=== PATIENT | female | born 1980 | race Caucasian/White ===

== ENCOUNTER 2020-03-01 11:43 | Outpatient (CLI) | payer OTHER, SELFPAY ==
--- NOTE | ~2020-03-01 | XR_ITS ---
EXAMINATION: XR hip LT min 2V EXAM DATE: 03/01/2020 12:28 INDICATION: No known recent injury provided at this time. Pain of the left hip. TECHNIQUE: Left hip frontal, 'frog leg' projections for interpretation. There is no prior study for comparison. FINDINGS: Left hip joint space is maintained, no evidence of hip avascular necrosis. There are no acu te fractures or dislocations identified. There is no subcutaneous gas. The soft tissue is unremarka ble. There are no radiopaque foreign bodies. Pubic symphysis sclerosis, osteitis. There is also mild left hip arthritis with dense sclerosis of the left sacroiliac joint, asymmetric s acroiliitis. Some possible considerations for asymmetric sacroiliitis include psoriatic arthritis, Re iter's syndrome, osteoarthritis. IMPRESSION: 1. Asymmetric left-sided chronic sacroiliitis. 2. Left-sided pubis sclerosis, probably chronic osteitis. 3. Unremarkable left hip. Reviewed, dictated and finalized at location B.
--- NOTE | ~2020-03-01 | XR_ITS ---
EXAMINATION: XR hip RT min 2V EXAM DATE: 03/01/2020 12:29 INDICATION: Bilateral hip pain. Arthralgia. TECHNIQUE: Right hip frontal, 'frog leg' projections for interpretation. There is no prior study fo r comparison. FINDINGS: Smooth right hip femoral head contour, no radiographic evidence of avascular necrosis. The re are no acute fractures or dislocations identified. There is no subcutaneous gas. The soft tissue is unremarkable. There are no radiopaque foreign bodies. IMPRESSION: 1. Unremarkable right hip. exam. Reviewed, dictated and finalized at location B.
--- NOTE | ~2020-03-01 | XR_ITS ---
EXAMINATION: XR lumbar spine 2-3V EXAM DATE: 03/01/2020 12:29 INDICATION: Low back pain. Polyarthralgia. TECHNIQUE: Lumber spine frontal, lateral, lateral L5-S1 projections for interpretation. Comparison is made to prior examination from 12/15/2010. FINDINGS: No spondylolysis. The vertebral bodies are aligned in the AP dimension. Vertebral body and disc heights are well-maintained. Mild lumbar facet arthropathy. Sacrum, sacroiliac joints, sacral arcuate lines are intact. Minimal aortic arterial sclerosis. IMPRESSION: Mild lumbar facet arthropathy. Reviewed, dictated and finalized at location B.
== END 2020-03-01 11:44 | disposition home or self-care (01) ==
LOC: CHSLAB 11:51 → CHSIMG 11:58
PROVIDERS: PCP Internal Medicine; Visit Provider Internal Medicine
DX: M25.50 Pain in unspecified joint (principal); E11.9 Type 2 diabetes mellitus without complications; E78.5 Hyperlipidemia, unspecified
CPT/HCPCS: 72100; 73502

== ENCOUNTER 2020-03-04 08:30 | Outpatient (CLI) | payer OTHER, SELFPAY ==
[2020-03-04 08:52] LABS: Basophils Absolute Auto 0.03 K/mm3 (0.00-0.10); Basophils Percent Auto 0.5 % (0.0-1.0); Eosinophils Absolute Auto 0.06 K/mm3 (0.02-0.50); Eosinophils Percent Auto 0.9 % (1.0-6.0); Hematocrit 41.5 % (35.0-49.0); Hemoglobin 14.4 g/dL (12.0-15.0); Immature Granulocyte Absolute 0.02 K/mm3 (0.00-0.00); Immature Granulocyte Percent A 0.3 % (0.0-0.0); Lymphocytes Absolute Auto 2.13 K/mm3 (1.10-4.50); Lymphocytes Percent Auto 32.6 % (18.0-42.0); Mean Corpuscular HGB Conc 34.7 g/dL (32.0-36.0); Mean Corpuscular Hemoglobin 32.4 pg (27.0-31.0); Mean Corpuscular Volume 93.3 fL (78.0-102.0); Mean Platelet Volume 10.7 fl (9.2-11.8); Monocytes Absolute Auto 0.38 K/mm3 (0.10-0.90); Monocytes Percent Auto 5.8 % (2.0-11.0); Neutrophils Absolute Auto 3.9 K/mm3 (1.7-7.2); Neutrophils Percent Auto 59.9 % (50.0-70.0); Platelet Count Result 203 K/mm3 (150-420); Red Blood Count 4.45 M/mm3 (4.20-5.40); Red Cell Distribution Width 11.2 % (11.6-14.4); White Blood Count 6.5 K/mm3 (4.8-10.8)
[2020-03-04 09:09] LABS: Creatinine Urine 83.45 mg/dL (40-278); MALB Creatinine Ratio 15.5 mg/g (0-30); Microalbumin Urine Random < 13.0 mg/L
[2020-03-04 09:10] LABS: Hemoglobin A1C 12.2 % (<5.7)
[2020-03-04 10:00] LABS: Alanine Aminotransferase 22 U/L (14-59); Albumin Level 3.5 g/dL (3.4-5.0); Alkaline Phosphatase 123 U/L (46-116); Anion Gap 7 mmol/L (8-16); Aspartate Amino Transferase 11 U/L (15-37); Bilirubin,Total 0.4 mg/dL (0.00-1.00); Blood Urea Nitrogen 13 mg/dL (7-18); CRP < 0.5 mg/dL (0.0-0.9); Calcium 8.9 mg/dL (8.5-10.1); Carbon Dioxide 26 mmol/L (21-32); Chloride 104 mmol/L (98-108); Cholesterol 215 mg/dL (0-200); Estimated Glomerular Filt Rate > 60; Glucose 316 mg/dL (70-99); HDL Direct 37 mg/dL (40-60); LDL Cholesterol Calculated 159 mg/dL (<130); Osmolality Calculated 296 mOsm/kg (285-295); Potassium 4.1 mmol/L (3.5-5.1); Sodium 137 mmol/L (136-145); Thyroid Stimulating Hormone 0.96 uIU/mL (0.36-3.74); Total Protein 6.5 g/dL (6.4-8.2); Triglycerides 95 mg/dL (0-150)
== END 2020-03-04 08:31 | disposition home or self-care (01) ==
LOC: CHSLAB 08:31
PROVIDERS: PCP Internal Medicine; Visit Provider Internal Medicine
DX: E78.5 Hyperlipidemia, unspecified (principal); E11.9 Type 2 diabetes mellitus without complications; M25.50 Pain in unspecified joint
CPT/HCPCS: 36415; 80053; 80061; 82043; 83036; 84443; 85025; 86140

== ENCOUNTER 2020-03-23 19:38 | Emergency (ER) | payer OTHER, SELFPAY ==
[2020-03-23 20:00] VITALS: BP 159/97; PULSE 98; RESP 20; TEMP 36.8; O2SAT 98
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
[2020-03-23] MEDS: SILVER SULFADIAZINE 1% CR 50 GM JAR (*BKC) 1 APPLIC TOPICAL (20:28)
[2020-03-23] MEDS: HYDROcodone/acetaminophen (*CRX) 5-325 MG TABLET 1 TAB PO (20:28)
[2020-03-23] MEDS: TETANUS,DIPHTHERIA,AC PERTUSSIS ADULT 0.5 ML (ADACEL) IM (20:28)
[2020-03-23 20:42] VITALS: PULSE 95; RESP 20; O2SAT 98
== END 2020-03-23 20:44 | disposition home or self-care (01) ==
PROVIDERS: Emergency Provider Emergency Medicine; PCP Internal Medicine
DX: T22.019A Burn of unspecified degree of unspecified forearm, initial encounter (principal); X19.XXXA Contact with other heat and hot substances, initial encounter
CPT/HCPCS: 16020; 90471; 90715; 99282; 99283; A9270

== ENCOUNTER 2020-12-01 11:33 | Emergency (ER) | payer OTHER, SELFPAY ==
--- NOTE | ~2020-12-01 | XR_ITS ---
XR chest 1V portable DATE: 12/01/2020 12:03 INDICATION: Chest pain, shortness of breath, cough TECHNIQUE: Portable AP chest on 12/01/2020 at 1216 hours COMPARISON: None FINDINGS: Normal heart size. No hilar or mediastinal enlargement. Lungs are normally inflated and jeremy ar of infiltrate or consolidation. No pleural effusion or pulmonary vascular congestion or pneumothor ax. Mild degenerative spurring of the thoracic spine. IMPRESSION: No active cardiopulmonary disease Reviewed, dictated and finalized at location A.
[2020-12-01 11:35] VITALS: BP 169/100; PULSE 118; RESP 20; TEMP 37.1; O2SAT 100
--- NOTE | 2020-12-01 11:45 | ECG_ITS ---
Measurements Intervals [place] Rate: 110 P: 71 NM: 137 QRS: 84 QRSD: 102 T: -25 QT: 333 QTc: 451 Interpretive Statements SINUS TACHYCARDIA MINIMAL Q WAVES- INFERIOR LEADS ST-T WAVE ABNORMALITY IN INFERIOR LEADS- CONSIDER ISCHEMIA BASELINE ARTIFACT- I, II, III, AVR, AVL, AVF, V1-V3 ABNORMAL ECG Electronically Signed On 12-01-2020 15:33:27 CDT by Kwame Marcano D.O.
[2020-12-01 11:59] LABS: Basophils Absolute Auto 0.06 K/mm3 (0.00-0.10); Basophils Percent Auto 0.4 % (0.0-1.0); Eosinophils Absolute Auto 0.02 K/mm3 (0.02-0.50); Eosinophils Percent Auto 0.1 % (1.0-6.0); Hematocrit 39.3 % (35.0-49.0); Hemoglobin 14.5 g/dL (12.0-15.0); Immature Granulocyte Absolute 0.06 K/mm3 (0.00-0.00); Immature Granulocyte Percent A 0.4 % (0.0-0.0); Lymphocytes Absolute Auto 1.79 K/mm3 (1.10-4.50); Lymphocytes Percent Auto 11.8 % (18.0-42.0); Mean Corpuscular HGB Conc 36.9 g/dL (32.0-36.0); Mean Corpuscular Hemoglobin 33.7 pg (27.0-31.0); Mean Corpuscular Volume 91.4 fL (78.0-102.0); Mean Platelet Volume 10.7 fl (9.2-11.8); Monocytes Absolute Auto 0.79 K/mm3 (0.10-0.90); Monocytes Percent Auto 5.2 % (2.0-11.0); Neutrophils Absolute Auto 12.4 K/mm3 (1.7-7.2); Neutrophils Percent Auto 82.1 % (50.0-70.0); Platelet Count Result 239 K/mm3 (150-420); Red Cell Distribution Width 11.4 % (11.6-14.4); White Blood Count 15.1 K/mm3 (4.8-10.8)
[2020-12-01 12:11] LABS: D Dimer 0.34 mg/L (0.19-0.50); Partial Thromboplastin Time 24.5 SEC (23.90-30.70); Prothrombin Time 10.8 Seconds (9.50-12.10)
[2020-12-01] MEDS: SODIUM CHLORIDE 0.9% IV 1,000 ML 999 ML IV CONT (12:12)
[2020-12-01] MEDS: KETOROLAC 30 MG/ML VIAL (*BKC) IV PUSH (12:12)
[2020-12-01] MEDS: ALPRAZolam (*CRX) 0.5 MG TABLET PO (12:12)
--- NOTE | 2020-12-01 12:16 | PC.NURSE ---
Pt states that she had 2 nightmares through the night in which caused her to awake from her sleep and then she could not fall back asleep. Pt continues to hyperventilate, pt reminded to slow breathing.
[2020-12-01 12:20] LABS: Alanine Aminotransferase 28 U/L (14-59); Albumin Level 3.8 g/dL (3.4-5.0); Alkaline Phosphatase 86 U/L (46-116); Anion Gap 17 mmol/L (8-16); Aspartate Amino Transferase 42 U/L (15-37); Bilirubin,Total 1.1 mg/dL (0.00-1.00); Blood Urea Nitrogen 16 mg/dL (7-18); Calcium 9.6 mg/dL (8.5-10.1); Carbon Dioxide 20 mmol/L (21-32); Chloride 104 mmol/L (98-108); Estimated CRCL calculation 84 ml/min; Estimated Glomerular Filt Rate > 60; Glucose 190 mg/dL (70-99); Lipase 55 U/L (73-393); NT Pro B Type Natriuretic Pept 89 pg/mL (0-125); Osmolality Calculated 298 mOsm/kg (285-295); Potassium 3.4 mmol/L (3.5-5.1); Sodium 141 mmol/L (136-145); Troponin I 13.9 ng/L (0.00-60.4)
[2020-12-01 12:35] VITALS: BP 158/83; PULSE 70; RESP 18; O2SAT 99
--- NOTE | 2020-12-01 12:38 | ED.CHESTPAIN ---
HPI - Chest Pain General Chief Complaint: Chest Pain Stated Complaint: chest pain Source: patient Mode of arrival: ambulatory Limitations: no limitations History of Present Illness HPI narrative: this is a 40-year-old female diabetes, is a current smoker with a history of anxiety, is having atypical chest pain that she describes as a tight feeling subxiphoid on the chest area with no radiation no nausea vomiting no fever chills she states that she is short of breath, and has history of anxiety and recently woke up from a nightmare earlier this morning with this chest discomfort. The pain does not have any radiation, no nausea or vomiting no fever chills no abdominal pain no flank pain no dysuria. complaint: chest discomfort Onset (ago): hour(s) Timing of current episode: constant Prior episodes: Yes Onset: during rest and other ( Occurred after she woke up from a nightmare) Pain location: subxiphoid Pain radiation: none Severity: moderate Pain scale (0-10): 6 Quality: tightness and aching Relieving factors: nothing Exacerbating factors: nothing Related Data Home Medications Medication Instructions Recorded Confirmed atorvastatin 10 mg PO DAILY 12/01/20 12/01/20 duloxetine 20 mg PO DAILY 12/01/20 12/01/20 glimepiride See Rx Instructions .ROUTE .COMPLEX 12/01/20 12/01/20 sitagliptin-metformin [Janumet] 1 tablet PO DAILY 12/01/20 12/01/20 Allergies Allergy/AdvReac Type Severity Reaction Status Date / Time No Known Allergies Allergy Verified 03/23/20 20:41 Review of Systems Review of Systems: All systems reviewed & are unremarkable except as noted in HPI and below PMFSH Past Medical History Medical History Anxiety Depression Social History Social History Smoking status: Current every day smoker Alcohol intake: current Substance use type: marijuana Gender identity (if verbalized by the patient): Female Exam Const: General: no acute distress and alert Orientation/consciousness: patient oriented x3 HENMT: Head: normal to inspection Eyes: Conjunctivae: conjunctivae normal Pupils: Equal, round and reactive pupils present EOM: EOMs intact bilaterally Neck: Neck: normal visual inspection, no lymphadenopathy and no meningeal signs Chest: Chest palpation & inspection: normal inspection of the chest Resp: Effort & Inspection: normal respiratory effort Auscultation: clear to auscultation bilaterally Cardio: Rate: regular rate Rhythm: regular rhythm GI: Auscultation: normal bowel sounds : General: Yes no CVA tenderness Back/Spine/Pelvis: Back: no CVA tenderness Skin: General skin exam: normal color Rashes: no rashes Neuro: General: patient oriented x3, moves all extremities, no meningeal signs and no focal motor deficits Extrem: General: normal to inspection and no pedal edema Psych: Mental Status: mental status grossly normal Affect: normal affect and Anxious affect present Attitude: cooperative Course Course Emergency Course: Reassessment of patient after receiving Toradol and Xanax patient's discomfort has eased currently not short of breath chest discomfort which was reproducible on palpation has eased as well. Vitals are stable heart rate has come down initially at 1:18 a.m. currently at 70. Vital Signs Vital signs: Vital Signs Temperature 37.1 C 12/01/20 11:35 Pulse Rate 118 H 12/01/20 11:35 Respiratory Rate 20 12/01/20 11:35 Blood Pressure 169/100 H 12/01/20 11:35 Pulse Oximetry 100 12/01/20 11:35 Temperature 37.1 C 12/01/20 11:35 Pulse Rate 70 12/01/20 12:35 Respiratory Rate 18 12/01/20 12:35 Blood Pressure 158/83 H 12/01/20 12:35 Pulse Oximetry 99 12/01/20 12:35 MDM - Chest Pain Lab Data Result diagrams: 12/01/20 11:54 12/01/20 11:54 Labs: Lab Results 12/01/20 12/01/20 12/01/20 R
== END 2020-12-01 13:06 | disposition home or self-care (01) ==
PROVIDERS: Emergency Provider Emergency Medicine; PCP Internal Medicine
DX: R07.89 Other chest pain (principal); F41.9 Anxiety disorder, unspecified
CPT/HCPCS: 36415; 71045; 80053; 83690; 83880; 84484; 85025; 85380; 85610; 85730; 93005; 96361; 96374; 99283; 99284; A9270; J1885; J7030

== ENCOUNTER 2020-12-09 16:19 | Outpatient (CLI) | payer OTHER, SELFPAY ==
[2020-12-09 16:36] LABS: Basophils Absolute Auto 0.05 K/mm3 (0.00-0.10); Basophils Percent Auto 0.6 % (0.0-1.0); Eosinophils Absolute Auto 0.12 K/mm3 (0.02-0.50); Eosinophils Percent Auto 1.3 % (1.0-6.0); Hematocrit 41.5 % (35.0-49.0); Hemoglobin 14.3 g/dL (12.0-15.0); Immature Granulocyte Absolute 0.03 K/mm3 (0.00-0.00); Immature Granulocyte Percent A 0.3 % (0.0-0.0); Lymphocytes Absolute Auto 2.83 K/mm3 (1.10-4.50); Lymphocytes Percent Auto 31.4 % (18.0-42.0); Mean Corpuscular HGB Conc 34.5 g/dL (32.0-36.0); Mean Corpuscular Hemoglobin 32.9 pg (27.0-31.0); Mean Corpuscular Volume 95.4 fL (78.0-102.0); Mean Platelet Volume 11.1 fl (9.2-11.8); Monocytes Absolute Auto 0.49 K/mm3 (0.10-0.90); Monocytes Percent Auto 5.4 % (2.0-11.0); Neutrophils Absolute Auto 5.5 K/mm3 (1.7-7.2); Platelet Count Result 284 K/mm3 (150-420); Red Blood Count 4.35 M/mm3 (4.20-5.40); Red Cell Distribution Width 11.3 % (11.6-14.4)
[2020-12-09 17:13] LABS: Alanine Aminotransferase 30 U/L (14-59); Albumin Level 3.6 g/dL (3.4-5.0); Alkaline Phosphatase 87 U/L (46-116); Anion Gap 11 mmol/L (8-16); Aspartate Amino Transferase 15 U/L (15-37); Bilirubin,Total 0.4 mg/dL (0.00-1.00); Blood Urea Nitrogen 9 mg/dL (7-18); Calcium 9.4 mg/dL (8.5-10.1); Carbon Dioxide 28 mmol/L (21-32); Chloride 105 mmol/L (98-108); Creatine Kinase 65 U/L (26-192); Estimated Glomerular Filt Rate > 60; Glucose 165 mg/dL (70-99); Osmolality Calculated 300 mOsm/kg (285-295); Potassium 4.4 mmol/L (3.5-5.1); Sodium 144 mmol/L (136-145); Total Protein 6.6 g/dL (6.4-8.2)
[2020-12-09 17:14] LABS: Troponin I < 4.0 ng/L (0.00-60.4)
== END 2020-12-09 16:20 | disposition home or self-care (01) ==
LOC: CHSLAB 16:21
PROVIDERS: PCP Internal Medicine; Visit Provider Internal Medicine
DX: R07.9 Chest pain, unspecified (principal); R10.13 Epigastric pain
CPT/HCPCS: 36415; 80053; 82550; 82553; 84484; 85025

== ENCOUNTER 2020-12-13 08:23 | Outpatient (CLI) | payer OTHER, SELFPAY ==
--- NOTE | ~2020-12-13 | US_ITS ---
EXAMINATION: US right upper quadrant DATE: 12/13/2020 08:56 INDICATION: Chest and epigastric pain TECHNIQUE: Multiple grayscale and Doppler ultrasound images of the abdomen were obtained. COMPARISON: None available FINDINGS: Bowel gas obscures visualization of the pancreas. The visualized portions of the pancreas a re unremarkable. There is a 2.4 x 3.0 x 2.4 cm hyperechoic lesion in the central liver. There is no l iver surface nodularity. Normal hepatopetal flow in the main portal vein. The gallbladder is contract ed. No gallbladder wall thickening, pericholecystic fluid, or gallstones are identified. The normal c ommon bile duct measures 3 mm. There was no sonographic Tsai sign. IMPRESSION: 1. No sonographic correlate for the patient's symptoms. 2. Indeterminate hyperechoic liver lesion which is likely benign in the absence of known malignancy h owever, further evaluation by MRI without and with contrast is recommended. Reviewed, dictated and finalized at location B. IMPRESSION: 1. No sonographic correlate for the patient's symptoms. 2. Indeterminate hyperechoic liver lesion which is likely benign in the absence of known malignancy however, further evaluation by MRI without and with contra st is recommended.
== END 2020-12-13 08:24 | disposition home or self-care (01) ==
LOC: CHSIMG 08:24
PROVIDERS: PCP Internal Medicine; Visit Provider Internal Medicine
DX: R07.9 Chest pain, unspecified (principal); K30 Functional dyspepsia
CPT/HCPCS: 76705

== ENCOUNTER 2021-02-06 10:56 | Outpatient (CLI) | payer OTHER, SELFPAY ==
--- NOTE | 2021-02-06 11:08 | EST_ITS ---
Patient Info Name: Karin Staley Age: 40 years : 1980 Gender: Female Ht: 68 in Wt: 200 lbs BSA: 2.11 m2 Exam Date: 02/06/2021 12:21 PM Exam Location: [facility] Patient Status: Outpatient Admit Date: 02/06/2021 Staff Ordering Physician: Kwame Marcano DO Attending Provider: Kwame Marcano DO Exam Type: CA stress test treadmill w NM Summary 1. 1. Negative Festus exercise stress test for ischemic ST changes by ECG criteria. She achieved 83% MPHR for age group which reduces sensitivity of the test. 2. 2. Good functional capacity, achieving 11 METs of workload. 3. 3. Hypertensive response to exercise. 4. 4. Appropriate HR response to exercise. 5. 5. Appropriate HR recovery at 1 minute post exercise. 6. 6. Nuclear scan to follow and will be reported separately. Please correlate with it. 7. 7. Patient informed of the above results. Protocol: Festus Stress ECG Details Stage: REST Duration (min): 3 min : 57 sec Speed (mph): 0.0 Grade (%): 0 HR (bpm): 82 SBP (mmHg): 124 DBP (mmHg): 73 METS: --- Stage: REST Duration (min): 10 min : 44 sec Speed (mph): 0.0 Grade (%): 0 HR (bpm): 91 SBP (mmHg): 124 DBP (mmHg): 73 METS: --- Stage: STAGE 1 Duration (min): 1 min : 0 sec Speed (mph): 1.7 Grade (%): 10 HR (bpm): 96 SBP (mmHg): 124 DBP (mmHg): 73 METS: --- Stage: STAGE 1 Duration (min): 2 min : 0 sec Speed (mph): 1.7 Grade (%): 10 HR (bpm): 106 SBP (mmHg): 124 DBP (mmHg): 73 METS: --- Stage: STAGE 1 Duration (min): 3 min : 0 sec Speed (mph): 1.7 Grade (%): 10 HR (bpm): 107 SBP (mmHg): 211 DBP (mmHg): 59 METS: --- Stage: STAGE 2 Duration (min): 1 min : 0 sec Speed (mph): 2.5 Grade (%): 12 HR (bpm): 112 SBP (mmHg): 211 DBP (mmHg): 59 METS: --- Stage: STAGE 2 Duration (min): 2 min : 0 sec Speed (mph): 2.5 Grade (%): 12 HR (bpm): 118 SBP (mmHg): 211 DBP (mmHg): 59 METS: --- Stage: STAGE 2 Duration (min): 3 min : 0 sec Speed (mph): 2.5 Grade (%): 12 HR (bpm): 120 SBP (mmHg): 208 DBP (mmHg): 82 METS: --- Stage: STAGE 3 Duration (min): 1 min : 0 sec Speed (mph): 3.4 Grade (%): 14 HR (bpm): 126 SBP (mmHg): 208 DBP (mmHg): 82 METS: --- Stage: STAGE 3 Duration (min): 2 min : 0 sec Speed (mph): 3.4 Grade (%): 14 HR (bpm): 130 SBP (mmHg): 208 DBP (mmHg): 82 METS: --- Stage: STAGE 3 Duration (min): 3 min : 0 sec Speed (mph): 3.4 Grade (%): 14 HR (bpm): 134 SBP (mmHg): 153 DBP (mmHg): 82 METS: --- Stage: STAGE 4 Duration (min): 0 min : 50 sec Speed (mph): 4.2 Grade (%): 16 HR (bpm): 146 SBP (mmHg): 153 DBP (mmHg): 82 METS: --- Stage: RECOVERY Duration (min): 0 min : 10 sec Speed (mph): 1.5 Grade (%): 0 HR (b
--- NOTE | 2021-02-06 14:19 | WPDCARIOSTRE ---
Nuclear Stress Test INDICATIONS Indications: Chest pain PROCEDURE Procedure Performed: Myocardial Perf Spect-Multi Procedure: Patient exercised on a standard Festus protocol and at peak exercise was injected with 33.1 mCi of cardiolyte. Multiple tomographic images were obtained. These are of good quality. No evidence of decreased perfusion with stress imaging. A separate resting images were obtained after patient was injected with 10.6 mCi of cardiolyte. Multiple tomographic images were obtained. These are of good quality. There is evidence of moderate size and moderate severity apical and anterior perfusion defects with rest imaging. CONCLUSION Conclusion: 1. Normal myocardial perfusion imaging demonstrating no perfusion defects during stress imaging. 2. No evidence of reversible ischemia. 3. Left ventriculogram demonstrates normal measured ejection fraction of 66%. No wall motion abnormalities. 4. TID score is normal at 0.75.
== END 2021-02-06 10:57 | disposition home or self-care (01) ==
LOC: CHSIMG 10:59
PROVIDERS: PCP Internal Medicine; Visit Provider Internal Medicine Cardiovascular Disease
DX: R07.9 Chest pain, unspecified (principal)
CPT/HCPCS: 78452; 93017; A9502

== ENCOUNTER 2022-07-21 09:44 | Emergency (ER) | payer OTHER, SELFPAY ==
[2022-07-21 09:57] VITALS: BP 141/69; PULSE 91; RESP 16; TEMP 36.4; O2SAT 99
[2022-07-21 10:12] LABS: Glucose Point of Care 301 mg/dl (65-105)
--- NOTE | 2022-07-21 10:21 | ED.FEMALEGU ---
HPI - Female Genitourinary General Chief complaint: Urogenital-Female Stated complaint: UTI SYMPTOMS Time Seen by Provider: 07/21/22 10:22 Source: patient, RN notes reviewed and old records reviewed Mode of arrival: ambulatory Limitations: no limitations History of Present Illness HPI Narrative: 42 year old female who presents to [facility] for rehabilitation care with complaints of 2 week duration of urinary burning, frequency, some urgency and some itching and lower back pain.. Patient reports that she took a bubble bath earlier in the week and it seemed to make her symptoms worse. Patient has history of diabetes, anxiety and depression,and hyperlipidemia but is not taking any medication for these disease processes. Patient has long history of tobacco abuse.Patient has been taking AZO for her symptoms. MD elicited complaint: UTI Onset (ago): week(s) (2) Location of symptoms: perineum and low back Severity scale (1-10): 3 Quality of pain: burning and aching Treatment prior to arrival: OTC urinary analgesics Related Data Allergies Allergy/AdvReac Type Severity Reaction Status Date / Time No Known Allergies Allergy Verified 07/21/22 09:53 Review of Systems Review of Systems: CONSTITUTIONAL: Denies fever, chills, or sweats. CARDIOVASCULAR: Denies chest pain, palpitations, or edema. RESPIRATORY: Denies cough or dyspnea. GASTROINTESTINAL: Denies abdominal pain, nausea, vomiting, or diarrhea. GENITOURINARY: Reports dysuria, frequency, urgency. Denies flank pain or hematuria.reports low back pain SKIN: Denies rash or itching. MUSCULOSKELETAL: positive low back pain or myalgia. Denies CVA tenderness NEUROLOGIC: Denies headache All systems reviewed & are unremarkable except as noted in HPI and below [facility] Past Medical History Medical History Anxiety Depression Diabetes Dyslipidemia Tobacco abuse Social History Social History (Updated 07/21/22 @ 11:25 by Sandy Franks NP) Smoking packs per day: 0.75 Smoking cigarettes per day: 15.0 Years smoked: 38 Smoking pack-years: 28.50 Smoking status: Current every day smoker Alcohol intake: current Substance use type: marijuana Gender identity (if verbalized by the patient): Female Comments At time of signature, agree with nursing past medical, surgical, social and family history. There is no relevant family history pertinent to the presenting complaint Exam Narrative: GENERAL: Well-appearing, well-nourished, and in no acute distress. HEAD: Normocephalic, atraumatic. NECK: Supple.no lymphadenopathy CHEST: Clear to auscultation. No respiratory distress.SAO2 99% on room air HEART: Regular rate and rhythm. No murmur heard. Normal peripheral pulses. ABDOMEN: Soft, nontender, nondistended, normal active bowel sounds. No CVA tenderness positive for low back pain and dysuria EXTREMITIES: Normal range of motion. No edema. SKIN: Warm, dry, no rash. NEURO: No focal deficits. Alert and oriented x3. Course Course Emergency Course: Patient is aware of diagnosis, understands and agrees to treatment plan.? Anticipatory guidance given.? Patient agrees to follow-up as directed and is aware of reasons to seek care at the emergency department. Portions of this record may have been created with voice recognition software Level of Care: Express Care Visit Vital Signs Vital signs: Vital Signs Temperature 36.4 C L 07/21/22 09:57 Pulse Rate 91 07/21/22 09:57 Respiratory Rate 16 07/21/22 09:57 Blood Pressure 141/69 H 07/21/22 09:57 Pulse Oximetry 99 07/21/22 09:57 Temperature 36.4 C L 07/21/22 09:57 Pulse Rate 91 07/21/22 09:57 Respiratory Rate 16 07/21/22 09:57 Blood Pressure 141/69 H 07/21/22 09:57 Pulse Oximetry 99 07/21/22 09:57 MDM - Female Genitourinary MDM Narrative Medical decision making narrative: Exam findings and UA show no acute concerns or changes; patient is non-toxic appearing and is
== END 2022-07-21 10:48 | disposition home or self-care (01) ==
PROVIDERS: Emergency Provider Registered Nurse
DX: N39.0 Urinary tract infection, site not specified (principal); E11.9 Type 2 diabetes mellitus without complications; E78.5 Hyperlipidemia, unspecified; F17.210 Nicotine dependence, cigarettes, uncomplicated; F12.90 Cannabis use, unspecified, uncomplicated
CPT/HCPCS: 81003; 82948; 87086; 87088; 87147; 99213; G0463